=== PATIENT | male | born 1990 | race Caucasian/White ===

== ENCOUNTER 2019-12-16 20:06 | Emergency (ER) | payer MEDICAID ==
[~2019-12-16] VITALS: Ht 170.2 cm; Wt 77.0 kg
[2019-12-16] MEDS ORDERED: SODIUM CHLORIDE 0.9% 1,000 ML IV SCH (20:44)
[2019-12-16] MEDS ORDERED: FAMOTIDINE 20MG/2ML VIAL IV ONE (20:45)
[2019-12-16] MEDS ORDERED: DEXAMETHASONE 10 MG/ML VIAL IV ONE (20:45)
[2019-12-16] MEDS ORDERED: DIPHENHYDRAMINE 50MG/ML VIAL IV ONE (20:45)
[2019-12-16 21:51] VITALS: BP 98/43
[2019-12-16 21:55] LABS: BASOPHILS % 0.3 % (0.0-2.0); EOSINOPHILS % 1.3 % (0.0-5.0); HEMATOCRIT. 40.2 % (42.0-52.0); LYMPHOCYTES % 23.2 % (20.0-50.0); MEAN CORPUSCULAR HEMOGLOBIN 30.6 pg (28.0-32.0); MEAN CORPUSCULAR VOLUME 87.5 fL (80.0-94.0); MEAN PLATELET VOLUME 8.3 fl (7.4-10.4); MONOCYTES % 4.7 % (2.0-8.0); NEUTROPHILS % 70.5 % (40.0-76.0); PLATELET 224 x1000/uL (130-400); RED BLOOD CELL COUNT 4.59 mill/uL (4.7-6.1); RED CELL DISTRIBUTION WIDTH 12.9 % (11.6-14.6)
[2019-12-16 21:56] LABS: CHLORIDE 110 mEq/L (98-107)
== END 2019-12-16 23:13 | disposition home or self-care (01) ==
LOC: ER 20:06
DX: L50.0 Allergic urticaria (principal); L29.8 Other pruritus
CPT/HCPCS: 36415; 80053; 85025; 96374; 96375; 99284; J1100; J1200; J3490